=== PATIENT | female | born 1930 | race Caucasian/White ===

== ENCOUNTER 2017-07-04 12:52 | Inpatient (IN) | payer OTHER, MEDICARE ==
[~2017-07-04] VITALS: Ht 152.4 cm; Wt 59.0 kg
[2017-07-04] MEDS ORDERED: Z GUARD REMEDY PASTE 57 GM TUBE TOP PRN (13:00)
[2017-07-04] MEDS ORDERED: MAG-55 PO (13:15)
[2017-07-04] MEDS ORDERED: LORA0.5T PO (13:15)
[2017-07-04] MEDS ORDERED: ONDA4TAB5 IVP (13:15)
[2017-07-04] MEDS ORDERED: SERT25TA PO (13:15)
[2017-07-04] MEDS ORDERED: MAGN400O6 PO (13:15)
[2017-07-04] MEDS ORDERED: AMIO100T4 PO (13:15)
[2017-07-04] MEDS ORDERED: RIVA10TA PO (13:15)
[2017-07-04] MEDS ORDERED: HYDR1SYR4 IJ (13:15)
[2017-07-04] MEDS ORDERED: SENN-18 PO (13:15)
[2017-07-04] MEDS ORDERED: ACET-2154 PO (13:15)
[2017-07-04] MEDS ORDERED: CEFT1VIA15 IV (13:15)
[2017-07-04] MEDS ORDERED: SODI1TAB3 PO (13:15)
[2017-07-04] MEDS ORDERED: ATEN50TA PO (13:15)
[2017-07-04 13:42] VITALS: BP 132/62
--- NOTE | 2017-07-04 16:44 | NUR ---
pt received at 1500. pertinent assessments done. pt admitted with dx of right hip orif. pt vitals stable upon assessment. pt pertinent assessments done. mrsa swab received. med recon done when md bourne was contacted. received report from [facility]. applied dvt pumps on. pt ate lunch. no pain noted. no bleeding noted. will continue to monitor.
[2017-07-04] MEDS ORDERED: Medication Not On Formulary EA (Mag Hydrox/Al Hydrox/Simeth (Maalox Max Strength Susp) 3 PO SCH (16:45)
[2017-07-04] MEDS ORDERED: ONDANSETRON HCL 4 MG TABLET PO PRN (16:45)
[2017-07-04] MEDS ORDERED: MAGNESIUM HYDROXIDE 30 ML LIQUID UDC PO PRN (16:45)
[2017-07-04] MEDS ORDERED: Medication Not On Formulary EA (Sodium Chloride 1 GM) PO SCH (17:00)
[2017-07-04] MEDS ORDERED: AMIODARONE HCL 400 MG PO SCH (17:00)
[2017-07-04] MEDS ORDERED: AMIODARONE HCL 200 MG TABLET PO ONE (18:30)
[2017-07-04] MEDS ORDERED: MAG HYDROX/AL HYDROX/SIMETH 30 ML LIQUID UDC PO PRN (18:30)
[2017-07-04] MEDS: SODIUM CHLORIDE 1,000 MG TABLET PO SCH (20:15)
[2017-07-04] MEDS: RIVAROXABAN 10 MG TABLET PO SCH (20:16)
--- NOTE | 2017-07-04 20:30 | NUR ---
resting comfortably when received. aaox4 right hip dressing clean dry and intact. needs attended. pleasant and calm. right arm on a sling, with black and blue bruise noted. no acute distress noted. incontinent of bowel and bladder. no BM this shift. Left upper midline intact. Tolerated po meds well. medicated with tramadol for pain on right hip. vital signs stable. kept comfortable.no acute distress noted.
[2017-07-04 20:56] VITALS: BP 147/68
[2017-07-04] MEDS: TRAMADOL HCL 50 MG TABLET PO PRN (21:08)
[2017-07-04] MEDS: LORAZEPAM 0.5 MG TABLET PO PRN (22:17)
--- NOTE | 2017-07-05 05:49 | NUR ---
slept well. needs attended. kept comfortable. incontinent of urine x2. kept clean and dry. will monitor patient. no distress noted.
--- NOTE | 2017-07-05 07:30 | NUR ---
Received pt in bed, aaox3 on r/a. No distress noted. PADMINI mid line intact and patent, No s/s of infection noted. Left hip surgical dressing intact, clean. right arm with sling on. Plan of care discussed, call light and personal belongings within easy reach.
--- NOTE | 2017-07-05 07:30 | NUR ---
RECEIVED PATIENT AT 0900 HOURS ALERT AND ORIENTED X4 WITH PHYSICAL THERAPIST. NO DISTRESS. NO PAIN. PADMINI MID LINE INTACT, DRY AND INTACT. NO S/S OF INFECTION. LEFT HIP SURGICAL DRESSING CHANGED INTACT, CLEAN, NO REDNESS. RIGHT ARM WITH SLING ON. CALL LIGHT AVAILABLE.
[2017-07-05] MEDS: ATENOLOL 50 MG TABLET PO SCH (09:00)
[2017-07-05] MEDS ORDERED: CEFTRIAXONE 1 G in IV DEXTROSE 5% 50 ML IV SCH (09:00)
[2017-07-05] MEDS: SENNOSIDES 1 TABLET PO SCH (09:29)
[2017-07-05] MEDS: SODIUM CHLORIDE 1,000 MG TABLET PO SCH ×2 (09:29→17:38)
[2017-07-05] MEDS: AMIODARONE HCL 200 MG TABLET PO SCH ×3 (09:41→17:37)
[2017-07-05 09:49] VITALS: BP 124/43
[2017-07-05] MEDS: RIVAROXABAN 10 MG TABLET PO SCH (17:43)
--- NOTE | 2017-07-05 19:30 | NUR ---
RECEIVED SHIFT REPORT FROM PREVIOUS SHIFT NURSE. PATIENT IN STABLE CONDITION, NO S/S OF DISTRESS. PATIENT A/OX4. DAUGHTER AT BEDSIDE. PATIENT IN SAFE ENVIRONMENT, BED IN LOCKED/LOW POSITION WITH SIDE RAILS UP X2, CALL LIGHT WITHIN REACH. PATIENT VERBALIZED UNDERSTANDING OF HOW TO USE CALL LIGHT WHEN ASSISTANCE IS NEEDED.
[2017-07-05 19:59] VITALS: BP 131/48
[2017-07-05] MEDS: LORAZEPAM 0.5 MG TABLET PO PRN (21:34)
[2017-07-06 07:30] VITALS: BP 137/52
[2017-07-06] MEDS: SODIUM CHLORIDE 1,000 MG TABLET PO SCH ×2 (08:39→17:00)
[2017-07-06] MEDS: SENNOSIDES 1 TABLET PO SCH (08:40)
[2017-07-06] MEDS: AMIODARONE HCL 200 MG TABLET PO SCH ×3 (08:40→17:00)
[2017-07-06] MEDS: ATENOLOL 50 MG TABLET PO SCH (08:40)
[2017-07-06] MEDS: RIVAROXABAN 10 MG TABLET PO SCH (18:00)
--- NOTE | 2017-07-06 18:30 | NUR ---
Patient refused pictures of redness on back at this time.
--- NOTE | 2017-07-06 19:39 | NUR ---
Handoff to night nurse.
[2017-07-06 20:10] VITALS: BP 12/49
[2017-07-06] MEDS: TRAMADOL HCL 50 MG TABLET PO PRN (22:08)
[2017-07-06] MEDS: LORAZEPAM 0.5 MG TABLET PO PRN (23:18)
[2017-07-07 07:30] VITALS: BP 124/48
[2017-07-07] MEDS: TRAMADOL HCL 50 MG TABLET PO PRN (10:03)
[2017-07-07] MEDS: SODIUM CHLORIDE 1,000 MG TABLET PO SCH ×2 (10:03→17:11)
[2017-07-07] MEDS: SERTRALINE HCL 50 MG TABLET PO SCH (10:04)
[2017-07-07] MEDS: ATENOLOL 50 MG TABLET PO SCH (10:05)
[2017-07-07] MEDS: SENNOSIDES 1 TABLET PO SCH (10:05)
[2017-07-07] MEDS: AMIODARONE HCL 200 MG TABLET PO SCH ×3 (10:05→17:16)
[2017-07-07] MEDS: RIVAROXABAN 10 MG TABLET PO SCH (17:18)
--- NOTE | 2017-07-07 20:30 | NUR ---
Received pt on bed alert and awake. Able to make needs known. Daughter at bedside. No acute distress noted. No complaints of pain or discomfort. No SOB noted. Ativan PRN given. Call light within reach. Kept clean, dry and comfortable. Safety and fall precautions observed and maintained. All needs attended.
[2017-07-07] MEDS: LORAZEPAM 0.5 MG TABLET PO PRN (20:36)
[2017-07-07 21:10] VITALS: BP 132/57
--- NOTE | 2017-07-08 05:44 | NUR ---
Patient slept comfortably throughout the night. No acute distress noted. No complaints of pain. Incontinent care rendered. Kept pt comfortable. Call light within reach. All needs attended.
[2017-07-08 07:40] VITALS: BP 128/54
[2017-07-08] MEDS: SENNOSIDES 1 TABLET PO SCH (08:59)
[2017-07-08] MEDS: SODIUM CHLORIDE 1,000 MG TABLET PO SCH ×2 (08:59→16:50)
[2017-07-08] MEDS: ATENOLOL 50 MG TABLET PO SCH (08:59)
[2017-07-08] MEDS: SERTRALINE HCL 50 MG TABLET PO SCH (08:59)
[2017-07-08] MEDS: AMIODARONE HCL 200 MG TABLET PO SCH ×3 (09:00→16:51)
[2017-07-08] MEDS: ACETAMINOPHEN 325 MG TABLET PO PRN (13:26)
[2017-07-08] MEDS: RIVAROXABAN 10 MG TABLET PO SCH (16:52)
[2017-07-08 19:30] VITALS: BP 125/52
--- NOTE | 2017-07-08 19:45 | NUR ---
Pt. lying on bed with her daughter by her side. Patient still wearing arm sling on R arm and elevated it with pillow. Abductor pillow placed between thighs and attached to legs with straps.Denies of any pain at this time. Pedal pulse present. Call light in reach. Will monitor the patient.
[2017-07-08] MEDS: LORAZEPAM 0.5 MG TABLET PO PRN (22:50)
--- NOTE | 2017-07-08 22:55 | NUR ---
Ativan 0.5mg PO given per patient's request.
--- NOTE | 2017-07-09 06:49 | NUR ---
Pt. slept the entire night. No signs of any respi. distress. Diaper changed per soiling. Will endorse to AM nurse.
[2017-07-09 07:11] LABS: BASOPHILS % (AUTO) 0.6 % (0.0-2.0); EOSINOPHILS # (AUTO) 0.2 K/uL (0.0-0.7); EOSINOPHILS % (AUTO) 3.3 % (0.0-7.0); HEMATOCRIT 28.1 % (31.2-41.9); LYMPHOCYTES # (AUTO) 0.6 K/uL (20.0-40.0); LYMPHOCYTES % (AUTO) 9.2 % (20.5-51.5); MEAN CORPUSCULAR HEMOGLOBIN 23.5 uug (24.7-32.8); MEAN CORPUSCULAR HGB CONC 32 g/dL (32.3-35.6); MEAN CORPUSCULAR VOLUME 73.3 fL (75.5-95.3); MONOCYTES # (AUTO) 0.4 K/uL (2.0-10.0); MONOCYTES % (AUTO) 5.5 % (0.0-11.0); NEUTROPHILS # (AUTO) 5.4 K/uL (1.8-8.9); NEUTROPHILS % (AUTO) 81.4 % (38.5-71.5); PLATELET COUNT (AUTO) 132 K/uL (179-408); RED BLOOD CELL COUNT(AUTO) 3.83 MIL/uL (3.63-4.92); WHITE BLOOD COUNT (AUTO) 6.6 K/uL (3.8-11.8)
[2017-07-09 07:20] VITALS: BP 141/57
[2017-07-09 07:44] LABS: CARBON DIOXIDE 24 mmol/L (21-32); CHLORIDE 102 mmol/L (98-107); CREATININE 0.7 mg/dL (0.6-1.3); GLUCOSE 97 mg/dL (74-106); POTASSIUM 3.8 mmol/L (3.5-5.1); UREA NITROGEN, BLOOD 23 mg/dL (7-18)
[2017-07-09] MEDS: SODIUM CHLORIDE 1,000 MG TABLET PO SCH ×2 (09:11→16:41)
[2017-07-09] MEDS: SERTRALINE HCL 50 MG TABLET PO SCH (09:12)
[2017-07-09] MEDS: AMIODARONE HCL 200 MG TABLET PO SCH ×2 (09:12→16:41)
[2017-07-09] MEDS: SENNOSIDES 1 TABLET PO SCH (09:12)
[2017-07-09] MEDS: ATENOLOL 50 MG TABLET PO SCH (09:13)
--- NOTE | 2017-07-09 12:00 | NUR ---
PATIENT SHOWERED TODAY, AMBULATES WITH PT AT 1120, NO DISTRESS NOTED, TOLERATED WELL. FAMILY AT BEDSIDE. WILL CONTINUE TO MONITOR FOR SAFETY AND NEEDS.
[2017-07-09] MEDS: ACETAMINOPHEN 325 MG TABLET PO PRN (12:49)
--- NOTE | 2017-07-09 14:00 | NUR ---
Patient c/o right shoulder pain at 6/10, tylenol 650mg PO given at 1249, reassessed in an hour, pain 2/10. Will continue to monitor for safety and needs. Hourly rounds done.
[2017-07-09] MEDS: RIVAROXABAN 10 MG TABLET PO SCH (17:27)
--- NOTE | 2017-07-09 19:50 | NUR ---
Pt. in bed with daughter at bedside. Pt. still with arm sling on her right arm, legs straightened up without any abductor pillow per daughter's request. Fabrizio of any pain at this time. Vital signs taken, see HOSPITAL SECRETARY notes. Repositioned patient . Pt. said she wants to take her Ativan tonight because it makes her feel and relaxes her til she can sleep. Safety measures provided. Bed on low position. Informed pt. to use call light when in need.
[2017-07-09] MEDS: LORAZEPAM 0.5 MG TABLET PO PRN (21:03)
--- NOTE | 2017-07-09 21:09 | NUR ---
Ativan 0.5mg tablet PO given per patient's request.
--- NOTE | 2017-07-10 05:29 | NUR ---
Pt. was able to sleep after Ativan 0.5mg was given. No complaints of any pain or discomfort throughout the shift. No acute signs of any respiratory distress. All due meds given. Diaper changed per soiling. Will endorse to AM shift nurse.
[2017-07-10 07:05] VITALS: BP 139/52
[2017-07-10] MEDS: SENNOSIDES 1 TABLET PO SCH (09:00)
[2017-07-10] MEDS: ATENOLOL 50 MG TABLET PO SCH (09:00)
[2017-07-10] MEDS: ACETAMINOPHEN 325 MG TABLET PO PRN (10:28)
[2017-07-10] MEDS: SODIUM CHLORIDE 1,000 MG TABLET PO SCH ×2 (10:30→16:51)
[2017-07-10] MEDS: AMIODARONE HCL 200 MG TABLET PO SCH ×2 (10:31→17:25)
[2017-07-10] MEDS: SERTRALINE HCL 50 MG TABLET PO SCH (10:34)
--- NOTE | 2017-07-10 10:58 | NUR ---
SBAR report received near bedside, board updated. Pt assessed no acute distress noted, no SOB, and O2 sat at 98% on RA, mask offered r/t poor air quality today. Pain 4-5/10 reported, Tylenol administered per PRN orders. Pt compliant with all routinely scheduled morning medications. Pt denied Senokot r/t recent BMx1, and Atenolol held r/t BP 119/66 Hr 75, v/s discussed, Pt and daughter decided against it at this time. All comfort and safety measures met. Pt able to make needs known. Personal items and call light within reach. Will continue to monitor.
--- NOTE | 2017-07-10 16:24 | NUR ---
Pt seen by , new orders received for BMP and to continue 1,500ml fluid restriction for one more day then to be re-evaluated. Will endorse to oncoming shift for further follow up. Pt able to make needs known. Will continue to monitor.
[2017-07-10] MEDS: RIVAROXABAN 10 MG TABLET PO SCH (17:31)
--- NOTE | 2017-07-10 18:10 | NUR ---
No notable changes, v/s stable and labs WNL. Daughter at bedside. Will continue to monitor and endorse oncoming shift.
--- NOTE | 2017-07-10 19:30 | NUR ---
RECEIVED PATIENT FROM DAY SHIFT NURSE. SHIFT REPORT AT BEDSIDE. PATIENT A/O X4, STABLE, WITH NO SIGNS OF PAIN, SOB, OR ACUTE DISTRESS. PERTINENT ASSESSMENT COMPLETED. CALL LIGHT PLACED WITHIN REACH OF PATIENT. WILL CONTINUE TO MONITOR PATIENT THROUGH SHIFT.
[2017-07-10] MEDS: LORAZEPAM 0.5 MG TABLET PO PRN (20:45)
[2017-07-10 20:51] VITALS: BP 132/57
--- NOTE | 2017-07-11 06:51 | NUR ---
PATIENT SLEPT WELL THROUGH THE NIGHT. STABLE WITH NO SIGNS OF PAIN, SOB, OR ACUTE DISTRESS. ALL NEEDS ATTENDED TO. ALL MEDICATIONS ADMINISTERED ORDERED. VITAL SIGNS STABLE. MIDLINE IN LEFT UPPER ARM CLEAN & PATENT. RIGHT HIP INCISION SITE CLEAN DRY & INTACT. SAFETY MEASURES IMPLEMENTED. CALL LIGHT WITHIN REACH OF PATIENT. WILL ENDORSE TO DAY SHIFT NURSE.
[2017-07-11 07:00] VITALS: BP 128/54
[2017-07-11 07:32] LABS: CARBON DIOXIDE 26 mmol/L (21-32); CHLORIDE 102 mmol/L (98-107); CREATININE 0.8 mg/dL (0.6-1.3); GLUCOSE 100 mg/dL (74-106); POTASSIUM 3.7 mmol/L (3.5-5.1); UREA NITROGEN, BLOOD 25 mg/dL (7-18)
[2017-07-11] MEDS: ATENOLOL 50 MG TABLET PO SCH (09:22)
[2017-07-11] MEDS: AMIODARONE HCL 200 MG TABLET PO SCH ×2 (09:22→17:37)
[2017-07-11] MEDS: SERTRALINE HCL 50 MG TABLET PO SCH (09:23)
[2017-07-11] MEDS: SODIUM CHLORIDE 1,000 MG TABLET PO SCH ×2 (09:23→17:35)
[2017-07-11] MEDS: SENNOSIDES 1 TABLET PO SCH (09:24)
[2017-07-11] MEDS: ACETAMINOPHEN 325 MG TABLET PO PRN (12:19)
--- NOTE | 2017-07-11 14:32 | NUR ---
INTERDISCIPLINARY TEAM CONFERENCE
[2017-07-11] MEDS: RIVAROXABAN 10 MG TABLET PO SCH (17:41)
[2017-07-11 19:33] VITALS: BP 115/47
[2017-07-11] MEDS: LORAZEPAM 0.5 MG TABLET PO PRN (20:55)
--- NOTE | 2017-07-12 05:35 | NUR ---
pt. slept throughout the night. No complain of any pain/discomfort. No acute signs of any respi. distress. Will endorse pt. to the next shift.
[2017-07-12] MEDS: ATENOLOL 50 MG TABLET PO SCH (08:21)
[2017-07-12] MEDS: SODIUM CHLORIDE 1,000 MG TABLET PO SCH ×2 (08:21→17:35)
[2017-07-12] MEDS: AMIODARONE HCL 200 MG TABLET PO SCH ×2 (08:21→17:35)
[2017-07-12] MEDS: SENNOSIDES 1 TABLET PO SCH (08:22)
[2017-07-12] MEDS: SERTRALINE HCL 50 MG TABLET PO SCH (08:22)
[2017-07-12 08:59] VITALS: BP 127/55
[2017-07-12] MEDS: ACETAMINOPHEN 325 MG TABLET PO PRN (12:07)
[2017-07-12] MEDS: RIVAROXABAN 10 MG TABLET PO SCH (17:38)
--- NOTE | 2017-07-12 19:30 | NUR ---
PT IN ROOM ALERT AWAKE AND ORIENTED WITH NO ACUTE DISTRESS. STATES SHE FEELS FINE AND JUST WANTS HER ATIVAN AT BEDTIME. MIDLINE TO LEFT UPPER ARM PATENT AND INTACT. NO PAIN AT THIS TIME TO RIGHT HIP. SLING TO RIGHT SHOULDER IN PLACE. CONTINUE TO MONITOR. CALL LIGHT PLACED WITHIN REACH.
[2017-07-12 20:11] VITALS: BP 125/48
[2017-07-12] MEDS: LORAZEPAM 0.5 MG TABLET PO PRN (20:35)
--- NOTE | 2017-07-13 05:00 | NUR ---
PT IN ROOM ASLEEP IN NO ACUTE DISTRESS. DRESSING TO AFFECTED WOUND TO RIGHT UPPER LEG REPLACED WITH NO ACTIVE BLEEDING OR S/S OF INFECTION. CONTINUE TO MONITOR. CALL LIGHT PLACED WITHIN REACH.
[2017-07-13 08:00] VITALS: BP 128/61
[2017-07-13] MEDS: SENNOSIDES 1 TABLET PO SCH (09:35)
[2017-07-13] MEDS: SERTRALINE HCL 50 MG TABLET PO SCH (09:36)
[2017-07-13] MEDS: SODIUM CHLORIDE 1,000 MG TABLET PO SCH ×2 (09:37→16:26)
[2017-07-13] MEDS: AMIODARONE HCL 200 MG TABLET PO SCH ×2 (09:37→16:26)
[2017-07-13] MEDS: ATENOLOL 50 MG TABLET PO SCH (09:37)
[2017-07-13] MEDS: ACETAMINOPHEN 325 MG TABLET PO PRN (12:17)
[2017-07-13] MEDS: RIVAROXABAN 10 MG TABLET PO SCH (17:24)
--- NOTE | 2017-07-13 17:31 | NUR ---
PT. WAS ASSISTED OOB WITH 2 PERS ASSIST TO [facility]. PT. WORKED WITH PT AND OT WITH [employer]. ASSISTED WITH TRANSFER TO BATHROOM. DAUGHTER AT IN AFTERNOON. MIDLINE REMOVED FROM PADMINI WITH NO UNTOWARD EFFECT. RIGHT ARM ELEVATED AND IN SLING. NO ACUTE DISTRESS.
--- NOTE | 2017-07-13 19:30 | NUR ---
RECEIVED PATIENT FROM DAY SHIFT NURSE. SHIFT REPORT AT BEDSIDE. PATIENT A/O X4 WITH NO SIGNS OF PAIN, SOB, OR ACUTE DISTRESS. PATIENT LYING COMFORTABLY IN BED AT START OF SHIFT. FAMILY AT BEDSIDE. FARSI/UPPER SORBIAN SPEAKING. BED IN LOW POSITION X2 SIDE RAILS UP. PERTINENT ASSESSMENT DONE. ON 1,500CC/DAY FLUID RESTRICTION. CALL LIGHT WITHIN REACH OF PATIENT. WILL CONTINUE TO MONITOR PATIENT THROUGH SHIFT.
[2017-07-13 20:26] VITALS: BP 124/42
[2017-07-13] MEDS: LORAZEPAM 0.5 MG TABLET PO PRN (21:00)
--- NOTE | 2017-07-14 06:29 | NUR ---
patient slept well through the shift. no signs of pain, sob, or acute distress. vital signs stable through shift. able to make needs known. all medications administered as ordered per md. dressings changed to right hip surgical site. patient tolerated procedure well. call light within reach of patient. safety measures implemented. will endorse to day shift nurse.
[2017-07-14 08:00] VITALS: BP 135/54
[2017-07-14] MEDS: AMIODARONE HCL 200 MG TABLET PO SCH ×2 (09:57→17:12)
[2017-07-14] MEDS: SERTRALINE HCL 50 MG TABLET PO SCH (09:57)
[2017-07-14] MEDS: SODIUM CHLORIDE 1,000 MG TABLET PO SCH ×2 (09:57→17:12)
[2017-07-14] MEDS: SENNOSIDES 1 TABLET PO SCH (09:58)
[2017-07-14] MEDS: ATENOLOL 50 MG TABLET PO SCH (09:58)
[2017-07-14] MEDS: RIVAROXABAN 10 MG TABLET PO SCH (17:14)
[2017-07-14] MEDS: LORAZEPAM 0.5 MG TABLET PO PRN (20:37)
[2017-07-14 21:25] VITALS: BP 132/45
--- NOTE | 2017-07-14 21:58 | NUR ---
A/O x4 Lungs clear bilat abd soft non tender b/s x4 right hip dressing c/d/i Disposable brief clean and dry.Denies of any pain unless she moves the right hip area. scd to lower exetremities. Ambulates with stand by assist with fww. last b/m 07/14. Generalize eechomis daughter from s/p fall. Right Shoulder splint on. side rails up call light within reach bed in lowest position wheels locked. Denies of any distress.
--- NOTE | 2017-07-15 06:42 | NUR ---
REMAINS LYING IN BED EYES CLOSED APPEAR RESTING COMFORTABLY RIGHT HIP DRESSING C/D/I
[2017-07-15 08:00] VITALS: BP 137/60
[2017-07-15] MEDS: SERTRALINE HCL 50 MG TABLET PO SCH (08:59)
[2017-07-15] MEDS: ACETAMINOPHEN 325 MG TABLET PO PRN (08:59)
[2017-07-15] MEDS: SODIUM CHLORIDE 1,000 MG TABLET PO SCH ×2 (09:00→17:00)
[2017-07-15] MEDS: AMIODARONE HCL 200 MG TABLET PO SCH ×2 (09:00→18:04)
[2017-07-15] MEDS: SENNOSIDES 1 TABLET PO SCH (09:00)
[2017-07-15] MEDS: ATENOLOL 50 MG TABLET PO SCH (09:03)
[2017-07-15] MEDS: RIVAROXABAN 10 MG TABLET PO SCH (18:03)
[2017-07-15 21:11] VITALS: BP 141/64
[2017-07-15] MEDS: LORAZEPAM 0.5 MG TABLET PO PRN (21:19)
[2017-07-16 08:42] VITALS: BP 135/57
[2017-07-16] MEDS: SENNOSIDES 1 TABLET PO SCH (09:50)
[2017-07-16] MEDS: ATENOLOL 50 MG TABLET PO SCH (09:50)
[2017-07-16] MEDS: SODIUM CHLORIDE 1,000 MG TABLET PO SCH ×2 (09:50→17:00)
[2017-07-16] MEDS: AMIODARONE HCL 200 MG TABLET PO SCH (09:50)
[2017-07-16] MEDS: SERTRALINE HCL 50 MG TABLET PO SCH (09:51)
[2017-07-16] MEDS: RIVAROXABAN 10 MG TABLET PO SCH (17:51)
[2017-07-16] MEDS ORDERED: LOPERAMIDE HCL 2 MG CAPSULE PO PRN (19:00)
[2017-07-16 19:30] VITALS: BP 125/59
[2017-07-16] MEDS ORDERED: DIPHENOXYLATE HCL/ATROP SULF TABLET PO ONE (21:00)
[2017-07-16] MEDS: LORAZEPAM 0.5 MG TABLET PO PRN (22:16)
--- NOTE | 2017-07-16 23:05 | NUR ---
Seen pt. during rounds already sleeping. No complains of any LBM at this time. Will continue to monitor.
--- NOTE | 2017-07-17 05:30 | NUR ---
pt. slept the entire shift. Denies of any pain or discomfort. No s/s of any respi. distress. All needs attended to. Will endorse to AM shift nurse.
[2017-07-17 07:50] VITALS: BP 134/65
--- NOTE | 2017-07-17 08:30 | NUR ---
Received patient on bed awake, A and O x 4 with right arm sling in place. Able to make needs known. No acute distress noted. No complaints of pain/ discomfort at this time. vital signs are stable and WNL. Reinforced safety and fall precautions. All comfort measures provided. Call light within reach, and answered in a timely manner. Daughter at bedside. Will continue to monitor closely.
[2017-07-17] MEDS: SODIUM CHLORIDE 1,000 MG TABLET PO SCH ×2 (09:00→09:05)
[2017-07-17] MEDS: SENNOSIDES 1 TABLET PO SCH ×2 (09:00→09:05)
[2017-07-17] MEDS: ATENOLOL 50 MG TABLET PO SCH (09:04)
[2017-07-17] MEDS: AMIODARONE HCL 200 MG TABLET PO SCH (09:05)
[2017-07-17] MEDS: SERTRALINE HCL 50 MG TABLET PO SCH (09:05)
[2017-07-17] MEDS: ACETAMINOPHEN 325 MG TABLET PO PRN (12:24)
--- NOTE | 2017-07-17 13:57 | NUR ---
Patient said she choked on pill, O2 sat 83 % on room air, audible crackles noted, slight cyanosis of the lips noted.. Administered O2 2lpm via nasal cannula, after a few mins O2 sat went up to 95%. Patient stated she felt the pill go down. Patient's color started to get better. Called and paged Dr. Dubose. Awaiting callback.
--- NOTE | 2017-07-17 14:30 | NUR ---
DR. FUENTES CALLED BACK WITH ORDERS FOR STAT CHEST XRAY. ORDERS CARRIED OUT.
[2017-07-17] MEDS: RIVAROXABAN 10 MG TABLET PO SCH (17:42)
[2017-07-17] MEDS ORDERED: ACETAMINOPHEN 650 MG/20.3 ML LIQUID UDC PO PRN (17:45)
--- NOTE | 2017-07-17 19:20 | NUR ---
Received patient sitting up in bed. Alert and verbally responsive. Able to make needs known. Denies any pain and discomfort at this time. No acute distress noted. No SOB. Aspiration precautions observed. On O2 2L via NC. Patient states she is feeling okay at this time and wants her medications crushed with apple sauce due to episode of choking during day shift. All needs attended to promptly. Call light within reach. Will continue to monitor.
[2017-07-17] MEDS: IPRATROPIUM BROMIDE 0.5 MG/2.5 ML NEBU NEB SCH (20:21)
[2017-07-17] MEDS: ALBUTEROL SULFATE 1.25 MG/3 ML NEBU NEB SCH (20:21)
[2017-07-17 20:43] VITALS: BP 137/70
--- NOTE | 2017-07-18 06:58 | NUR ---
Patient slept comfortably throughout the night. No c/o pain and discomfort. No acute distress. No SOB. Kept clean and dry. Dressing on right hip changed. No s/s of infection at surgical site. All needs attended to promptly. Call light within reach. Will continue to monitor.
--- NOTE | 2017-07-18 07:25 | NUR ---
Received patient awake, alert and oriented x4. On room air. No SOB noted. Not in any form of distress. Call light within reach.
[2017-07-18 07:36] LABS: BASOPHILS % (AUTO) 0.3 % (0.0-2.0); HEMOGLOBIN 9.3 g/dL (10.9-14.3); LYMPHOCYTES # (AUTO) 0.8 K/uL (20.0-40.0); LYMPHOCYTES % (AUTO) 6.8 % (20.5-51.5); MEAN CORPUSCULAR HEMOGLOBIN 23.2 uug (24.7-32.8); MEAN CORPUSCULAR HGB CONC 31 g/dL (32.3-35.6); MEAN CORPUSCULAR VOLUME 75.1 fL (75.5-95.3); MONOCYTES # (AUTO) 0.6 K/uL (2.0-10.0); MONOCYTES % (AUTO) 5.1 % (0.0-11.0); NEUTROPHILS # (AUTO) 9.8 K/uL (1.8-8.9); NEUTROPHILS % (AUTO) 87.8 % (38.5-71.5); PLATELET COUNT (AUTO) 128 K/uL (179-408); WHITE BLOOD COUNT (AUTO) 11.2 K/uL (3.8-11.8)
[2017-07-18 08:09] LABS: CARBON DIOXIDE 25 mmol/L (21-32); CHLORIDE 103 mmol/L (98-107); CREATININE 0.9 mg/dL (0.6-1.3); GLUCOSE 110 mg/dL (74-106); POTASSIUM 4.1 mmol/L (3.5-5.1); UREA NITROGEN, BLOOD 32 mg/dL (7-18)
[2017-07-18] MEDS: IPRATROPIUM BROMIDE 0.5 MG/2.5 ML NEBU NEB SCH ×4 (08:11→22:00)
[2017-07-18] MEDS: ALBUTEROL SULFATE 1.25 MG/3 ML NEBU NEB SCH ×4 (08:11→22:00)
[2017-07-18] MEDS: ATENOLOL 50 MG TABLET PO SCH (09:00)
[2017-07-18] MEDS: AMIODARONE HCL 200 MG TABLET PO SCH (09:54)
--- NOTE | 2017-07-18 10:00 | NUR ---
With daughter at bedside. Requesting Zoloft to be taken at night.
[2017-07-18 11:34] VITALS: BP 122/55
[2017-07-18] MEDS ORDERED: IV NS 1000 ML 1,000 ML IV PRN (12:30)
--- NOTE | 2017-07-18 14:30 | NUR ---
IV started at left hand, Intact. Up with occupational therapy, tolerating therapy well.
--- NOTE | 2017-07-18 14:48 | NUR ---
INTERDISCIPLINARY TEAM CONFERENCE
[2017-07-18] MEDS: RIVAROXABAN 10 MG TABLET PO SCH (17:36)
--- NOTE | 2017-07-18 18:30 | NUR ---
Instructed and demonstrated use of incentive spirometry.
--- NOTE | 2017-07-18 19:30 | NUR ---
Received patient sitting up in bed. Alert and verbally responsive. Able to make needs known. Denies any pain and discomfort at this time. No acute distress. No SOB. Kept clean and dry. IV site on left hand. Patent and intact. Infusing NS @ 80ml/hr. No s/s of fluid overload. All needs attended to promptly. Call light within reach. Will continue to monitor.
[2017-07-18 20:24] VITALS: BP 125/69
[2017-07-18] MEDS: SERTRALINE HCL 50 MG TABLET PO SCH (20:32)
--- NOTE | 2017-07-18 21:48 | NUR ---
Patient noted with swelling of both lower extremities and right hand. Pitting edema +1 noted on both lower extremities. Kept elevated with pillows. No c/o pain and discomfort. No acute distress. No SOB. Patient noted with cough. Lung sounds are clear upon auscultation. Patient is currently on IVF NS @ 80ml/hr. IVF stopped at this time. Dr. Chris Dubose made aware of patients condition with new orders for Procalcitonin and CT of the chest. New orders noted and carried out. Spoke with Brayan in radiology and he says CT will be done first thing in the AM and lab will add Procalcitonin to this AM's blood draw. Chris Dubose made aware. Per Dr. Dubose, the cough is good for her since she has LLL atelectasis. Also made aware that patient has received 500mls since IVF was started, ordered to stop fluids. All needs attended to promptly. Call light within each. Will continue to monitor patient.
[2017-07-19 07:30] VITALS: BP 131/57
--- NOTE | 2017-07-19 07:45 | NUR ---
Received patient awake, verbally responsive, coherent, not in any form of acute distress. She denies any pain or discomfort at this time. With O2 at 2LPM via NC. Heplock on right hand with no noted redness, pain or swelling. Call light placed within reach. Reminded to use call light for assistance with verbalized understanding. Assisted to her needs.
[2017-07-19] MEDS: ALBUTEROL SULFATE 1.25 MG/3 ML NEBU NEB SCH ×4 (08:51→19:20)
[2017-07-19] MEDS: IPRATROPIUM BROMIDE 0.5 MG/2.5 ML NEBU NEB SCH ×4 (08:51→19:20)
[2017-07-19] MEDS: AMIODARONE HCL 200 MG TABLET PO SCH (09:46)
[2017-07-19] MEDS: ATENOLOL 50 MG TABLET PO SCH (09:55)
--- NOTE | 2017-07-19 10:05 | NUR ---
Patient up on wheelchair, picked up by radiology for CT scan.
[2017-07-19] MEDS ORDERED: FUROSEMIDE 20 MG TABLET PO ONE (12:15)
--- NOTE | 2017-07-19 13:09 | NUR ---
Patient seen and examined by Dr. Chris Dubose with order to d/c PO lasix and give lasix 20mg IV x 1. Patient and daughter at bedside aware.
[2017-07-19] MEDS ORDERED: FUROSEMIDE 20 MG/2 ML VIAL IV ONE (13:15)
[2017-07-19] MEDS: RIVAROXABAN 10 MG TABLET PO SCH (18:21)
--- NOTE | 2017-07-19 19:30 | NUR ---
Received patient from day shift nurse. shift report at bedside. family at bedside. patient A/O x4, lying comfortably in bed with no signs of pain, sob, or acute distress. vital signs stable at start of shift. bed in low position x2 side rails up. pertinent assessment done. call light within reach of patient. will continue to monitor patient through shift.
[2017-07-19 20:16] VITALS: BP 106/50
[2017-07-19] MEDS: SERTRALINE HCL 50 MG TABLET PO SCH (20:52)
--- NOTE | 2017-07-20 07:07 | NUR ---
patient slept well through shift. no signs of pain, sob, or acute distress. all needs attended to. all medications administered as ordered per md. safety measures implemented. call light within reach of patient. will endorse to day shift nurse.
[2017-07-20 07:34] LABS: BASOPHILS % (AUTO) 0.3 % (0.0-2.0); HEMOGLOBIN 8.6 g/dL (10.9-14.3); LYMPHOCYTES # (AUTO) 0.5 K/uL (20.0-40.0); MEAN CORPUSCULAR HEMOGLOBIN 23.2 uug (24.7-32.8); MONOCYTES # (AUTO) 0.4 K/uL (2.0-10.0)
--- NOTE | 2017-07-20 07:35 | NUR ---
Patient received in bed awake. Patient is alert, awake and oriented. Pt is able to make her needs known and was attended to. Patient is on O2 via nasal canula set at 2 liters per minute. No distress noted, breathing is even and unlabored. No complaints of any pain. Patient was repositioned for comfort.
[2017-07-20 07:41] LABS: EOSINOPHILS % (AUTO) 0.7 % (0.0-7.0); HEMATOCRIT 27.6 % (31.2-41.9); LYMPHOCYTES % (AUTO) 11.5 % (20.5-51.5); MEAN CORPUSCULAR HGB CONC 31 g/dL (32.3-35.6); MEAN CORPUSCULAR VOLUME 74.7 fL (75.5-95.3); MONOCYTES % (AUTO) 8.6 % (0.0-11.0); NEUTROPHILS # (AUTO) 3.5 K/uL (1.8-8.9); NEUTROPHILS % (AUTO) 78.9 % (38.5-71.5); PLATELET COUNT (AUTO) 107 K/uL (179-408); RED BLOOD CELL COUNT(AUTO) 3.69 MIL/uL (3.63-4.92); WHITE BLOOD COUNT (AUTO) 4.4 K/uL (3.8-11.8)
[2017-07-20 08:10] LABS: CARBON DIOXIDE 31 mmol/L (21-32); CHLORIDE 106 mmol/L (98-107); GLUCOSE 108 mg/dL (74-106); MAGNESIUM 1.3 mg/dL (1.8-2.4); PHOSPHOROUS 3.7 mg/dL (2.5-4.9); POTASSIUM 3.8 mmol/L (3.5-5.1); UREA NITROGEN, BLOOD 37 mg/dL (7-18)
[2017-07-20 08:18] LABS: BAND % (MANUAL) 1 % (0-10); EOSINOPHILS % (MANUAL) 1 % (0-8); LYMPHOCYTES % (MANUAL) 11 % (20-40); MONOCYTES % (MANUAL) 11 % (2-10); NEUTROPHILS % (MANUAL) 76 % (42-75)
[2017-07-20] MEDS: ALBUTEROL SULFATE 1.25 MG/3 ML NEBU NEB SCH ×4 (08:36→19:34)
[2017-07-20] MEDS: IPRATROPIUM BROMIDE 0.5 MG/2.5 ML NEBU NEB SCH ×4 (08:36→19:34)
[2017-07-20] MEDS: AMIODARONE HCL 200 MG TABLET PO SCH (09:03)
[2017-07-20 09:22] VITALS: BP 113/43
--- NOTE | 2017-07-20 10:29 | NUR ---
I agree Addendum: 07/20/17 at 1030 by DAVID WAITE OT Amended: Links added.
--- NOTE | 2017-07-20 10:31 | NUR ---
I agree Addendum: 07/20/17 at 1031 by DAVID WAITE OT Amended: Links added.
[2017-07-20] MEDS: ATENOLOL 50 MG TABLET PO SCH (11:18)
--- NOTE | 2017-07-20 12:17 | NUR ---
UNABLE TO GIVE HHN TX, PT IS UNAVAILABLE AT THIS TIME. RN IS AWARE AND NOTIFIED.
[2017-07-20] MEDS ORDERED: MAGNESIUM OXIDE 400 MG TABLET PO ONE (15:15)
[2017-07-20] MEDS: RIVAROXABAN 10 MG TABLET PO SCH (18:03)
[2017-07-20 19:30] VITALS: BP 115/51
[2017-07-20] MEDS ORDERED: POTASSIUM CHLORIDE 20 MEQ TAB.PRT.SR PO ONE (19:30)
[2017-07-20] MEDS ORDERED: FUROSEMIDE 40 MG/4 ML VIAL IV ONE (19:30)
--- NOTE | 2017-07-20 19:30 | NUR ---
RECEIVED PATIENT FROM DAY SHIFT NURSE. SHIFT REPORT AT BEDSIDE. PATIENT LYING IN BED COMFORTABLY AT START OF SHIFT A/O X4, WITH NO SIGNS OF SOB, OR ACUTE DISTRESS. PERTINENT ASSESSMENTS COMPLETED. NEW ORDERS FROM MD AT START OF SHIFT. LASIX 40MG IV PUSH X1 & POTASSIUM 40 MEQS PO X1. WILL CARRY OUT ORDER. SAFETY MEASURES IMPLEMENTED. BED IN LOW POSITION X2 SIDE RAILS UP. VITAL SIGNS STABLE AT START OF SHIFT. CALL LIGHT PLACED WITHIN REACH OF PT. WILL CONTINUE TO MONITOR PATIENT THROUGH SHIFT.
[2017-07-20] MEDS: SERTRALINE HCL 50 MG TABLET PO SCH (20:16)
--- NOTE | 2017-07-21 02:07 | NUR ---
DRESSING CHANGED ON RIGHT HIP SURGICAL SITE. CLEANSED WITH NS THEN PAT/DRY. SURGICAL SITE CLEAN, DRY, INTACT WITH NO SIGNS OF INFECTION. TURNED & REPOSITIONED PATIENT Q 2 HOURS. BILATERAL UPPER EXTREMITIES ELEVATED. SCD PUMPS FUNCTIONING. WILL CONTINUE TO MONITOR PATIENT THROUGH SHIFT.
--- NOTE | 2017-07-21 05:36 | NUR ---
PATIENT SLEPT INTERMITTENTLY THROUGH THE SHIFT. NO SIGNS OF PAIN, SOB, OR ACUTE DISTRESS. ALL NEEDS ATTENDED TO. ALL MEDS ADMINISTERED ORDERED PER MD. SAFETY MEASURES IMPLEMENTED. TURNING & REPOSITIONING Q 2 HOURS. ELEVATED B/L UPPER EXTREMITIES TO PREVENT FURTHER SWELLING. SCD PUMPS ON DURING THE NIGHT. CALL LIGHT PLACED WITHIN REACH OF PT. WILL ENDORSE TO DAY SHIFT NURSE.
[2017-07-21] MEDS: IPRATROPIUM BROMIDE 0.5 MG/2.5 ML NEBU NEB SCH ×4 (07:02→19:01)
[2017-07-21] MEDS: ALBUTEROL SULFATE 1.25 MG/3 ML NEBU NEB SCH ×4 (07:02→19:01)
[2017-07-21 07:24] LABS: BASOPHILS % (AUTO) 0.5 % (0.0-2.0); EOSINOPHILS % (AUTO) 0.5 % (0.0-7.0); HEMATOCRIT 29.5 % (31.2-41.9); LYMPHOCYTES # (AUTO) 0.6 K/uL (20.0-40.0); LYMPHOCYTES % (AUTO) 12.7 % (20.5-51.5); MEAN CORPUSCULAR HGB CONC 31 g/dL (32.3-35.6); MEAN CORPUSCULAR VOLUME 75.4 fL (75.5-95.3); MONOCYTES # (AUTO) 0.4 K/uL (2.0-10.0); MONOCYTES % (AUTO) 8.2 % (0.0-11.0); NEUTROPHILS # (AUTO) 3.6 K/uL (1.8-8.9); NEUTROPHILS % (AUTO) 78.1 % (38.5-71.5); PLATELET COUNT (AUTO) 111 K/uL (179-408); RED BLOOD CELL COUNT(AUTO) 3.91 MIL/uL (3.63-4.92); WHITE BLOOD COUNT (AUTO) 4.6 K/uL (3.8-11.8)
--- NOTE | 2017-07-21 07:30 | NUR ---
Patient in bed, lying comfortably iin semi-fowlers position, awake and alert, verbally responsive. denies pain at this time. On continuos O2 at 2-3LPM, saturating at 98%, tolerated well. No shortness of breath at this time, encouraged patient to turn and reposition and educated with the use of incentive spirometer, verbalized understanding. Reduced swelling ont Addendum: 07/21/17 at 0810 by LASHANDA BOUDREAUX JR., RN Reduced swelling on the right arm noted, elevated the right arm with a pillow, will re-assess every 2 hours and as needed. Reduced swelling on bilateral lower extremities noted as well, elevated lower extremities to encourage venous return and reduce swelling, will reassess every 2 hours and as needed. Patients peripheral IV site on the left arm is intact with no signs and symptoms of infiltration noted at this time. Kept comfortable, needs attended promptly, call light place in easy reach.
[2017-07-21 07:36] LABS: CARBON DIOXIDE 31 mmol/L (21-32); CHLORIDE 103 mmol/L (98-107); GLUCOSE 118 mg/dL (74-106); MAGNESIUM 1.3 mg/dL (1.8-2.4); PHOSPHOROUS 3.5 mg/dL (2.5-4.9); POTASSIUM 3.7 mmol/L (3.5-5.1); UREA NITROGEN, BLOOD 37 mg/dL (7-18)
[2017-07-21 07:59] VITALS: BP 128/48
[2017-07-21] MEDS: AMIODARONE HCL 200 MG TABLET PO SCH (08:48)
[2017-07-21] MEDS: ATENOLOL 50 MG TABLET PO SCH (08:49)
--- NOTE | 2017-07-21 11:00 | NUR ---
Received new lab results, a decreased level in magnesium noted, relayed results to Dr. Chris Dubose, responded with new orders noted and carried out. Daughter Lisset is made aware, encouraged to ask questions, no concerns at this time.
--- NOTE | 2017-07-21 11:30 | NUR ---
Received new stat order from Dr. Dubose to do Chest Xray, noted and carried out. Patient is currently in bed, no cough and no congestion noted.
--- NOTE | 2017-07-21 12:00 | NUR ---
Patient is in the wheelchair, not in pain and not in distress, tolerated activity well.
[2017-07-21] MEDS: MAGNESIUM SULFATE/D5W 100 ML IV SCH ×6 (12:22→18:35)
--- NOTE | 2017-07-21 14:48 | NUR ---
Patient was seen and examined by Dr. Dubose with new orders to start antibiotic therapy noted and carried out. Daughter Lisset at bedside, verbalized understanding.
[2017-07-21] MEDS ORDERED: VANCOMYCIN IV 1 G in PREMIXED 0 EACH IV SCH ×2 (15:00→16:00)
[2017-07-21] MEDS ORDERED: PIPERACILLIN/TAZOBACTAM/D5W 3.375 G in PREMIXED 1 EACH IV SCH (15:00)
--- NOTE | 2017-07-21 15:23 | NUR ---
PHARMACY CLINICAL NOTES (VANCOMYCIN DOSING) S: 87 YO female with DX of Pneumoniae. MD ordered zosyn and Vancomycin per pharmacy O: BUN/SCR 37/1.0; WBC 4.6, TEMP 97.9, DOSING WT 130 LBS A/P: Will dose vancomycin as 1000 mg q32h. First dose to start now. Calculated peak 40 trough of 17. Plan to check trough prior to 4th dose (not ordered in [facility] yet). Will continue monitoring the renal fxn and level and adjust the dose if necessary.
[2017-07-21] MEDS: PIPERACILLIN/TAZOBACTAM/D5W 2.25 G in PREMIXED 1 EACH IV SCH ×3 (17:28→23:29)
[2017-07-21] MEDS: methylPREDNISolone SOD SUCC 40 MG/ML VIAL IV SCH ×2 (17:30→21:47)
[2017-07-21] MEDS: RIVAROXABAN 10 MG TABLET PO SCH (17:37)
--- NOTE | 2017-07-21 18:00 | NUR ---
First dose of Zosyn started, The due dose for 1800 was non administered, physician was made aware. Per MD cancel the dose for 1800. Resume Zosyn every 6 hours as ordered.
--- NOTE | 2017-07-21 18:50 | NUR ---
Patient is in bed, awake and alert, verbally responsive, not in pain and not in acute distress, respirations even and regular. On O2 at 2LPM, tolerated well saturation is at 98%. No cough no congestion noted. With the daughter at bedside, patient is on semi-fowlers position, comfortable. Patient turned and reposition every 2 hours and as needed, to facilitate lung drainage and pressure relief. Patient is on antibiotic therapy, with no adverse reactions, no rashes, no shortness of breath noted at this time, no side effects, no episode of diarrhea noted. Patient kept clean and dry. Will endorse to night nurse to encourage turning and repositioning patient every 2 hours.
[2017-07-21] MEDS: VANCOMYCIN IV 1 G in PREMIXED 0 EACH IV SCH (19:03)
--- NOTE | 2017-07-21 19:30 | NUR ---
RECEIVED PATIENT FROM DAY SHIFT NURSE. SHIFT REPORT AT BEDSIDE. PATIENT LYING COMFORTABLY IN BED AT START OF SHIFT, A/O X4 WITH NO SIGNS OF PAIN, SOB, OR ACUTE DISTRESS. PATIENT ABLE TO MAKE NEEDS KNOWN. BED IN LOW POSITION X2 SIDE RAILS UP. HOB ELEVATED WITH PILLOWS UNDERNEATH PATIENT'S ARMS. B/L LOWER EXTREMITY ELEVATED AT START OF SHIFT. IV ATB RUNNING AT START OF SHIFT. PERTINENT ASSESSMENT COMPLETED. CALL LIGHT PLACED WITHIN REACH OF PATIENT. WILL CONTINUE TO MONITOR PATIENT THROUGH SHIFT.
[2017-07-21] MEDS: SERTRALINE HCL 50 MG TABLET PO SCH (20:47)
--- NOTE | 2017-07-21 21:16 | NUR ---
SPOKE WITH DR. FUENTES REGARDING PATIENT CONDITION AND FLUID INTAKE. WAS CONCERNED ABOUT THE AMOUNT OF FLUID INTAKE PT IS RECEIVING SINCE SHE IS ON 2,000 ML/DAY FLUID RESTRICTION. UPON ASSESSMENT AT START OF SHIFT, NOTICED PATIENT WITH CONGESTION & NON PRODUCTIVE COUGH, AND NO SOB. VITALS STABLE, O2 SAT AT 98% VIA NC AT 2L/MIN. TOLD DOCTOR ABOUT TOTAL AMOUNT OF FLUID INTAKE VIA IV MEDICATION ADMINISTRATION. PER MD "WE ARE OK FOR NOW KEEP ON EYE ON HER. THIS LOOKS MORE LIKE PNEUMONITIS THAN CHF". MD PLANS TO ORDER DIURETICS QD FOR PATIENT. PATIENT DENIES PAIN, SOB, OR ANY DISCOMFORT. TURNED & REPOSITIONED PT. DIAPER CHANGED PER SOILING. Z GUARD/MEPILEX APPLIED PER MD ORDER. WILL CONTINUE TO MONITOR PATIENT THROUGH SHIFT.
[2017-07-21 22:00] VITALS: BP 125/51
[2017-07-22] MEDS: methylPREDNISolone SOD SUCC 40 MG/ML VIAL IV SCH ×3 (05:06→21:11)
[2017-07-22] MEDS: PIPERACILLIN/TAZOBACTAM/D5W 2.25 G in PREMIXED 1 EACH IV SCH ×3 (05:06→17:09)
--- NOTE | 2017-07-22 05:40 | NUR ---
PATIENT SLEPT WELL THROUGH THE SHIFT. PATIENT STATED THAT SHE FELT COMFORTABLE ALL NIGHT NO SIGNS OF PAIN OR SOB. NO PRODUCTIVE COUGH NOTED THROUGH SHIFT. PATIENT SOUNDS CONGESTED UPON AUSCULTATION. VITAL SIGNS STABLE THROUGH SHIFT. ON O2 2L VIA NC. O2 SAT AT 99%. HOB ELEVATED THROUGH SHIFT. TURNED & REPOSITIONED Q2 HRS. ON STRICT FLUID RESTRICTION 2,000ML/DAY. ALL MEDS ADMINISTERED PER MD ORDER. ALL NEEDS ATTENDED TO. SAFETY MEASURES IMPLEMENTED. CALL LIGHT WITHIN REACH OF PATIENT. WILL ENDORSE TO DAY SHIFT NURSE.
[2017-07-22 07:43] VITALS: BP 147/70
[2017-07-22 07:50] LABS: BASOPHILS % (AUTO) 0.1 % (0.0-2.0); HEMOGLOBIN 8.7 g/dL (10.9-14.3); LYMPHOCYTES # (AUTO) 0.2 K/uL (20.0-40.0); MEAN CORPUSCULAR HGB CONC 31 g/dL (32.3-35.6); NEUTROPHILS # (AUTO) 2.1 K/uL (1.8-8.9)
[2017-07-22 07:51] LABS: CARBON DIOXIDE 32 mmol/L (21-32); CHLORIDE 102 mmol/L (98-107); CREATININE 0.9 mg/dL (0.6-1.3); GLUCOSE 160 mg/dL (74-106); MAGNESIUM 2.1 mg/dL (1.8-2.4); PHOSPHOROUS 3.8 mg/dL (2.5-4.9); POTASSIUM 4.1 mmol/L (3.5-5.1); UREA NITROGEN, BLOOD 38 mg/dL (7-18)
[2017-07-22] MEDS: ALBUTEROL SULFATE 1.25 MG/3 ML NEBU NEB SCH ×4 (07:53→19:03)
[2017-07-22] MEDS: IPRATROPIUM BROMIDE 0.5 MG/2.5 ML NEBU NEB SCH ×4 (07:53→19:03)
[2017-07-22 08:24] LABS: HEMATOCRIT 28.2 % (31.2-41.9); MEAN CORPUSCULAR VOLUME 74.6 fL (75.5-95.3); MONOCYTES % (AUTO) 1.4 % (0.0-11.0); NEUTROPHILS % (AUTO) 90.5 % (38.5-71.5); PLATELET COUNT (AUTO) 106 K/uL (179-408); RED BLOOD CELL COUNT(AUTO) 3.77 MIL/uL (3.63-4.92)
[2017-07-22 08:25] LABS: WHITE BLOOD COUNT (AUTO) 2.3 K/uL (3.8-11.8)
[2017-07-22 08:37] VITALS: BP 125/51
[2017-07-22] MEDS: AMIODARONE HCL 200 MG TABLET PO SCH (08:39)
[2017-07-22] MEDS: ATENOLOL 50 MG TABLET PO SCH (08:40)
--- NOTE | 2017-07-22 09:20 | NUR ---
PHARMACY CLINICAL NOTES (VANCOMYCIN DOSING) S: 87 YO female with DX of Pneumoniae. MD ordered zosyn and Vancomycin per pharmacy O: BUN/SCR 38/0.9; WBC 2.3, TEMP 98, DOSING WT 130 LBS A/P: Will continue same dose of vancomycin as 1000 mg IVPB q32h for today. Second dose is due on 07/23 at 0200. Plan to check trough prior to 4th dose (not ordered yet). Will continue monitoring the renal fxn and level and adjust the dose if necessary.
[2017-07-22 09:51] LABS: BAND % (MANUAL) 1 % (0-10); LYMPHOCYTES % (MANUAL) 7 % (20-40); MONOCYTES % (MANUAL) 1 % (2-10); NEUTROPHILS % (MANUAL) 91 % (42-75)
--- NOTE | 2017-07-22 09:51 | NUR ---
pt seen on rounding. pt on 2 liters nc with 02 sat at 95%. bp stable. pt afebrile. no new injuries noted. pt given bp meds whole. fluid restrictions noted. pt had a bm and voided. changed diapers. 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 changed with mepilex and hydrogel. applied z guard on sacrum. hip precaution and arm precaution implemented. pt continues to have right hand edematous. labs resulted and aware. will notify md. pt is up for therapy. no new injuries noted.
[2017-07-22] MEDS ORDERED: POTASSIUM CHLORIDE 20 MEQ TAB.PRT.SR PO ONE (15:00)
[2017-07-22] MEDS ORDERED: FUROSEMIDE 40 MG/4 ML VIAL IV SCH (16:00)
[2017-07-22] MEDS: RIVAROXABAN 10 MG TABLET PO SCH (17:51)
--- NOTE | 2017-07-22 18:59 | NUR ---
pt seen by . pt put on 2 doses of lasix with potassium after lasix is given. pt continues to be on 2 liters. pt cchaged. applied mepilex and hydrogel on site. changed dressing. incision has seroangiounous drainage. pt continues to cough non productive. fluid restrictions on for 2000ml. iv site intact. pt participated in therapy. sling on. new pain noted. endorse to shrimp packer nurse.
[2017-07-22] MEDS ORDERED: FUROSEMIDE 40 MG/4 ML VIAL IV ONE (19:00)
[2017-07-22 19:30] VITALS: BP 104/47
[2017-07-22] MEDS ORDERED: LACTOBACILLUS RHAMNOSUS GG 1 EACH CAPSULE PO SCH (21:00)
[2017-07-22] MEDS: SERTRALINE HCL 50 MG TABLET PO SCH (21:10)
--- NOTE | 2017-07-22 22:22 | NUR ---
Pt resting comfortably in bed. AAO x4. On 2LPM O2 via NC with saturation of 99%, tolerating well. Assisted with hygiene care and changed the diaper. IV site intact. Fluid restriction of 2000 mL. Incision on right hip has some serosanguineous drainage. Site was cleaned and pat dry. Dressing has been changed. No acute distress noted. No c/o pain or discomfort. Safety measures maintained. Call light and personal belongings within reach. Will continue to monitor.
[2017-07-23] MEDS: PIPERACILLIN/TAZOBACTAM/D5W 2.25 G in PREMIXED 1 EACH IV SCH ×4 (00:02→17:32)
[2017-07-23] MEDS: VANCOMYCIN IV 1 G in PREMIXED 0 EACH IV SCH (01:56)
[2017-07-23] MEDS: methylPREDNISolone SOD SUCC 40 MG/ML VIAL IV SCH ×2 (05:08→14:23)
--- NOTE | 2017-07-23 05:31 | NUR ---
Pt slept intermittently at night. 2LPM O2 via NC tolerating well. Meds given per MD's order. All needs attended to promptly. Changed diaper as needed. Pt stable. IV site patent and intact. Will endorse to day shift RN. Continue to monitor.
--- NOTE | 2017-07-23 07:04 | NUR ---
Called [facility] to reach Dr. 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 As per [facility], they will notify Dr. Dubose to call back to us. Will endorse to day shift RN.
--- NOTE | 2017-07-23 08:00 | NUR ---
received report from night nurse, patient stable, no s.s acute distress. received call back from Dr Michael and informed lab that test should be quantitative per MD order. domain architect at bedside ordered chest xray and chest ultrasound to be done STAT today to check for amount of fluid in lungs. orders acknowledged. will monitor.
[2017-07-23 08:36] LABS: BASOPHILS % (AUTO) 0.1 % (0.0-2.0); HEMATOCRIT 30.3 % (31.2-41.9); HEMOGLOBIN 9.4 g/dL (10.9-14.3); LYMPHOCYTES # (AUTO) 0.2 K/uL (20.0-40.0); LYMPHOCYTES % (AUTO) 6.7 % (20.5-51.5); MEAN CORPUSCULAR HEMOGLOBIN 23.1 uug (24.7-32.8); MEAN CORPUSCULAR HGB CONC 31 g/dL (32.3-35.6); MEAN CORPUSCULAR VOLUME 74.6 fL (75.5-95.3); MONOCYTES # (AUTO) 0.1 K/uL (2.0-10.0); MONOCYTES % (AUTO) 2.9 % (0.0-11.0); NEUTROPHILS % (AUTO) 90.3 % (38.5-71.5); PLATELET COUNT (AUTO) 125 K/uL (179-408); RED BLOOD CELL COUNT(AUTO) 4.06 MIL/uL (3.63-4.92); WHITE BLOOD COUNT (AUTO) 3.3 K/uL (3.8-11.8)
[2017-07-23 08:56] LABS: CARBON DIOXIDE 34 mmol/L (21-32); CHLORIDE 101 mmol/L (98-107); CREATININE 1.3 mg/dL (0.6-1.3); GLUCOSE 171 mg/dL (74-106); MAGNESIUM 1.6 mg/dL (1.8-2.4); PHOSPHOROUS 4.1 mg/dL (2.5-4.9); POTASSIUM 3.4 mmol/L (3.5-5.1); UREA NITROGEN, BLOOD 43 mg/dL (7-18)
[2017-07-23 09:00] VITALS: BP 112/44
[2017-07-23] MEDS ORDERED: AMIODARONE HCL 200 MG TABLET PO SCH (09:00)
[2017-07-23] MEDS: ATENOLOL 50 MG TABLET PO SCH (09:00)
[2017-07-23] MEDS: IPRATROPIUM BROMIDE 0.5 MG/2.5 ML NEBU NEB SCH ×4 (09:01→19:03)
[2017-07-23] MEDS: ALBUTEROL SULFATE 1.25 MG/3 ML NEBU NEB SCH ×4 (09:02→19:03)
[2017-07-23 09:14] LABS: IRON, SERUM 40 ug/dL (50-175)
[2017-07-23 09:42] LABS: LYMPHOCYTES % (MANUAL) 6 % (20-40); MONOCYTES % (MANUAL) 3 % (2-10); NEUTROPHILS % (MANUAL) 91 % (42-75)
[2017-07-23 10:35] LABS: FERRITIN 181 ng/mL (8-252)
[2017-07-23] MEDS ORDERED: POTASSIUM CHLORIDE 20 MEQ TAB.PRT.SR PO ONE (12:15)
[2017-07-23] MEDS: MAGNESIUM SULFATE/D5W 100 ML IV SCH ×2 (13:13→15:00)
--- NOTE | 2017-07-23 16:01 | NUR ---
PHARMACY CLINICAL NOTES (VANCOMYCIN DOSING) S: 87 YO female with DX of Pneumoniae. MD ordered zosyn and Vancomycin per pharmacy O: BUN/SCR 43/1.3 ; WBC 3.3, TEMP 98, DOSING WT 130 LBS A/P: Since renal function is decreased(1.3 vs 0.9), will decrease dose to 1 gram every 42hrs(2nd dose tomorrow at 2200) and draw trough by 4th dose(not ordered yet) for expected trough around 15. Will monitor daily.
--- NOTE | 2017-07-23 16:45 | NUR ---
2g of magnesium given via IV to patient, IV ran over 2 hours due to patient complaining of discomfort at site when running too quickly. potassium also given PO. pt currently on 1.5L O2 and saturating well. no c/o shortness of breath. MD Dubose, cardiology, and pulmonology made rounds at bedside. ECHO, chest xray, and chest ultrasound done today. discussed plans to continue low dose lasix for few days and possible transfer to med-surg tomorrow. will continue to monitor.
[2017-07-23] MEDS: FUROSEMIDE 20 MG/2 ML VIAL IV SCH (17:32)
[2017-07-23] MEDS: RIVAROXABAN 10 MG TABLET PO SCH (17:34)
--- NOTE | 2017-07-23 20:00 | NUR ---
Received pt lying comfortably with HOB. Able to make needs known. Pleasant, calm and cooperative to care. No apparent distress noted. Family at bedside during this time. No complaints of pain or discomfort. On o2 1.5L NC, no SOB noted. All due meds given as ordered and well tolerated. Kept clean, dry and comfortable. Call light placed within reach. All needs attended.
[2017-07-23 20:30] VITALS: BP 106/47
[2017-07-23] MEDS: FERROUS GLUCONATE 324 MG TABLET PO SCH (21:10)
[2017-07-23] MEDS: SERTRALINE HCL 50 MG TABLET PO SCH (21:10)
--- NOTE | 2017-07-24 05:32 | NUR ---
Pt slept comfortably throughout the shift. No acute distress noted. Denies pain. No SOB noted. Incontinent care rendered. Frequently checked for safety. Turned and repositioned q2hrs. Kept clean, dry and comfortable. Call light within reach. All needs attended.
--- NOTE | 2017-07-24 07:00 | NUR ---
Pt refused ABG at this time, wants to sleep..
[2017-07-24] MEDS: ALBUTEROL SULFATE 1.25 MG/3 ML NEBU NEB SCH ×3 (07:09→16:05)
[2017-07-24] MEDS: IPRATROPIUM BROMIDE 0.5 MG/2.5 ML NEBU NEB SCH ×3 (07:09→16:05)
[2017-07-24 07:17] LABS: BASOPHILS % (AUTO) 0.1 % (0.0-2.0); HEMATOCRIT 27.6 % (31.2-41.9); HEMOGLOBIN 8.5 g/dL (10.9-14.3); LYMPHOCYTES # (AUTO) 0.2 K/uL (20.0-40.0); LYMPHOCYTES % (AUTO) 8.5 % (20.5-51.5); MEAN CORPUSCULAR HEMOGLOBIN 22.8 uug (24.7-32.8); MEAN CORPUSCULAR HGB CONC 31 g/dL (32.3-35.6); MEAN CORPUSCULAR VOLUME 74.2 fL (75.5-95.3); MONOCYTES # (AUTO) 0.2 K/uL (2.0-10.0); MONOCYTES % (AUTO) 7.2 % (0.0-11.0); NEUTROPHILS # (AUTO) 2.4 K/uL (1.8-8.9); NEUTROPHILS % (AUTO) 84.2 % (38.5-71.5); PLATELET COUNT (AUTO) 105 K/uL (179-408); RED BLOOD CELL COUNT(AUTO) 3.71 MIL/uL (3.63-4.92); WHITE BLOOD COUNT (AUTO) 2.8 K/uL (3.8-11.8)
--- NOTE | 2017-07-24 07:30 | NUR ---
Received patient in bed awake, verbally responsive, no noted signs/symptoms of acute distress. Patient denies any pain or discomfort at this time. Call light placed within reach. Attended to her needs. On O2 at 1.5 LPM via NC. Heplock on the left hand G20, no redness, no pain.
[2017-07-24 08:01] LABS: ALANINE AMINOTRANSFERASE 37 U/L (14-59); ALKALINE PHOSPHATASE 131 U/L (50-136); ASPARTATE AMINOTRANSFERASE 29 U/L (15-37); BILIRUBIN,TOTAL 0.7 mg/dL (0.2-1.0); CARBON DIOXIDE 37 mmol/L (21-32); CHLORIDE 104 mmol/L (98-107); CREATININE 1.2 mg/dL (0.6-1.3); GLUCOSE 137 mg/dL (74-106); POTASSIUM 3.2 mmol/L (3.5-5.1); TOTAL PROTEIN, SERUM 4.9 g/dL (6.4-8.2); UREA NITROGEN, BLOOD 45 mg/dL (7-18)
--- NOTE | 2017-07-24 08:20 | NUR ---
Pt refused ABG.. Wants to eat first..
[2017-07-24 08:36] LABS: THYROID STIMULATING HORMONE < 0.007 mIU/mL (0.358-3.740)
--- NOTE | 2017-07-24 09:00 | NUR ---
Pt refused ABG, eating at this time, sts later..
--- NOTE | 2017-07-24 09:20 | NUR ---
Pt refused ABG again..
[2017-07-24] MEDS: FUROSEMIDE 20 MG/2 ML VIAL IV SCH ×2 (09:22→17:00)
[2017-07-24 09:23] VITALS: BP 116/53
[2017-07-24] MEDS: ATENOLOL 50 MG TABLET PO SCH (09:23)
[2017-07-24] MEDS: FERROUS GLUCONATE 324 MG TABLET PO SCH (09:23)
[2017-07-24] MEDS ORDERED: POTASSIUM CHLORIDE 20 MEQ TAB.PRT.SR PO ONE (14:00)
[2017-07-24] MEDS: RIVAROXABAN 10 MG TABLET PO SCH (18:39)
[2017-07-24] MEDS ORDERED: BUME1TAB5 PO (20:10)
[2017-07-24] MEDS ORDERED: ALBU1.25 NEB (20:10)
--- NOTE | 2017-07-24 21:57 | NUR ---
report given to LUANNE Mooney. transferred pt to tele rm 205 as ordered. No acute changes noted. No SOB noted. No complaints of pain or discomfort. Pt stable upon transfer. Discharge pictures were taken and placed on chart. Belongings done. Vital signs stable. All needs met.
[2017-07-24] MEDS ORDERED: VANCOMYCIN IV 1 G in PREMIXED 0 EACH IV SCH (22:00)
[2017-07-25 05:16] LABS: *IMMUNOGLOBULIN G, SERUM 683 mg/dL (700-1600); IMMUNOGLOBULIN A, SERUM 256 mg/dL (64-422); IMMUNOGLOBULIN M, SERUM 20 mg/dL (26-217)
[2017-07-25] MEDS ORDERED: BUMETANIDE 1 MG TABLET PO SCH (09:00)
[2017-07-25 10:17] LABS: A/G RATIO 1.2 (0.7-1.7); ALBUMIN 2.6 g/dL (2.9-4.4); ALPHA-1-GLOBULIN 0.3 g/dL (0.0-0.4); ALPHA-2-GLOBULIN 0.6 g/dL (0.4-1.0); BETA GLOBULIN 0.6 g/dL (0.7-1.3); GAMMA GLOBULIN 0.6 g/dL (0.4-1.8); GLOBULIN, TOTAL 2.1 g/dL (2.2-3.9); M-SPIKE Not Observed g/dL (Not Observed)
== END 2017-07-24 22:38 | disposition short-term general hospital (02) | DRG 862 ==
LOC: TELE 07-24 22:05
PROVIDERS: ADMIT Physical Medicine & Rehabilitation Pain Medicine; ATTEND Physical Medicine & Rehabilitation Pain Medicine
DX: Z47.1 Aftercare following joint replacement surgery (principal); N17.0 Acute kidney failure with tubular necrosis; E43 Unspecified severe protein-calorie malnutrition; I50.33 Acute on chronic diastolic (congestive) heart failure; D61.818 Other pancytopenia; I31.3 Pericardial effusion (noninflammatory); K50.90 Crohn's disease, unspecified, without complications; I27.20 Pulmonary hypertension, unspecified; J98.11 Atelectasis; I48.0 Paroxysmal atrial fibrillation; I48.2 Chronic atrial fibrillation; D50.0 Iron deficiency anemia secondary to blood loss (chronic); W19.XXXD Unspecified fall, subsequent encounter; S42.211D Unspecified displaced fracture of surgical neck of right humerus, subsequent encounter for fracture with routine healing; I13.0 Hypertensive heart and chronic kidney disease with heart failure and stage 1 through stage 4 chronic kidney disease, or unspecified chronic kidney disease; Z96.641 Presence of right artificial hip joint; F32.9 Major depressive disorder, single episode, unspecified; N18.9 Chronic kidney disease, unspecified; M16.11 Unilateral primary osteoarthritis, right hip; M81.0 Age-related osteoporosis without current pathological fracture; Z91.81 History of falling; I08.1 Rheumatic disorders of both mitral and tricuspid valves; D63.8 Anemia in other chronic diseases classified elsewhere; I25.2 Old myocardial infarction; Z90.710 Acquired absence of both cervix and uterus; E78.5 Hyperlipidemia, unspecified
CPT/HCPCS: 36415; 71010; 71270; 73030; 76604; 82746; 82784; 83090; 83550; 83735; 84100; 84155; 84165; 84443; 85025; 86334; 92526; 92610; 93307; 94640; 94664; 97110; 97112; 97116; 97165; 97530; 97535; J1940; J2543; J2920; J3370; J3475; J3590

== ENCOUNTER 2017-07-24 22:45 | Inpatient (IN) | END 2017-08-03 16:25 | DRG 194 | DX: I11.0 Hypertensive heart disease with heart failure (principal); J96.01 Acute respiratory failure with hypoxia; I21.A1 Myocardial infarction type 2; E43 Unspecified severe protein-calorie malnutrition; N17.9 Acute kidney failure, unspecified; D68.59 Other primary thrombophilia; I31.3 Pericardial effusion (noninflammatory); D61.818 Other pancytopenia; I27.20 Pulmonary hypertension, unspecified; I48.2 Chronic atrial fibrillation; E83.42 Hypomagnesemia; Z79.01 Long term (current) use of anticoagulants; I50.33 Acute on chronic diastolic (congestive) heart failure; I50.810 Right heart failure, unspecified; Z96.641 Presence of right artificial hip joint; E78.5 Hyperlipidemia, unspecified; Z74.09 Other reduced mobility; Z68.32 Body mass index [BMI] 32.0-32.9, adult; S72.001D Fracture of unspecified part of neck of right femur, subsequent encounter for closed fracture with routine healing; S42.301D Unspecified fracture of shaft of humerus, right arm, subsequent encounter for fracture with routine healing; W19.XXXD Unspecified fall, subsequent encounter; B36.9 Superficial mycosis, unspecified; N28.1 Cyst of kidney, acquired; J98.11 Atelectasis; Z90.710 Acquired absence of both cervix and uterus; I70.0 Atherosclerosis of aorta; I48.0 Paroxysmal atrial fibrillation; I08.2 Rheumatic disorders of both aortic and tricuspid valves; F32.9 Major depressive disorder, single episode, unspecified; F41.9 Anxiety disorder, unspecified; E87.6 Hypokalemia; K82.4 Cholesterolosis of gallbladder; D69.59 Other secondary thrombocytopenia; E53.8 Deficiency of other specified B group vitamins; R16.2 Hepatomegaly with splenomegaly, not elsewhere classified; K92.2 Gastrointestinal hemorrhage, unspecified; E05.90 Thyrotoxicosis, unspecified without thyrotoxic crisis or storm; D46.9 Myelodysplastic syndrome, unspecified; D50.9 Iron deficiency anemia, unspecified ==